=== PATIENT | male | born 1950 | race Caucasian/White ===

== ENCOUNTER 2019-01-28 09:46 | Outpatient (CLI) | payer MEDICARE ==
--- NOTE | 2019-01-28 11:14 | MRI ---
MRI Lower Ext Jt Rt WO Con History: M 23.91 internal derangement of right knee Comparison: None. Findings: Medial meniscus: Intact Lateral meniscus: Intact ACL and PCL MCL LCL are all intact. : Quadriceps tendon, patella, and patellar tendon are intact. Cartilage: Patellofemoral compartment: Multifocal high-grade cartilage fissures of the patellar apex as well as medial trochlea. Medial compartment: Intact Lateral compartment: Intact Soft tissues: No significant joint effusion. Trace popliteal bursa formation with few internal septat ions. Muscles: Normal muscle signal and bulk. Bones: No fracture malalignment or stress edema. Impression: 1.Few full-thickness cartilage fissures of the patellar apex and medial trochlea. 2. Very small popliteal cyst with internal septations. 3. Intact menisci and cruciate ligaments.
--- NOTE | 2019-01-28 11:43 | MRI ---
MRI Lower Ext Jt Lt WO Con History: M 23.92 internal derangement of left knee Comparison: None. Findings: Medial meniscus: Intact Lateral meniscus: Intact ACL, PCL, MCL and LCL are all intact with low-grade intraligamentous degeneration ACL. Simple subcortical cyst within the posterior cortex of the lateral tibia at the proximal tibiofibular joint. Extensor mechanism: Quadriceps tendon, patella, and patellar tendon are intact. Cartilage: Patellofemoral compartment: Few 50-75 % cartilage fissures and adjacent delamination of the patellar apex. High-grade chondral fissures with subcortical reactive marrow changes central trochlea. Medial compartment: Intact Lateral compartment: Intact. Posterior flexion zones are intact. Muscles: Intact. Normal muscle signal and bulk. Soft tissues: No significant popliteus bursa effusion. Normal joint fluid. Impression: 1. Multifocal full-thickness cartilage fissures and delamination with early central osteophyte format ion and articular surface remodeling of the central trochlea. 2. 50-75% thickness cartilage fissuring of the patellar apex without reactive marrow changes. 3. Intact menisci and cruciate ligaments.
== END 2019-01-28 09:47 | disposition home or self-care (01) ==
LOC: BICMRI 09:46
PROVIDERS: ATTEND Orthopaedic Surgery
DX: M23.92 Unspecified internal derangement of left knee (principal); M23.91 Unspecified internal derangement of right knee; M71.21 Synovial cyst of popliteal space [Baker], right knee

== ENCOUNTER 2022-06-25 08:05 | Outpatient (CLI) | payer MEDICARE ==
[2022-06-25] MEDS ORDERED: Iopamidol 370 76% 100 ML VIAL ONE (08:37)
== END 2022-06-25 08:06 | disposition home or self-care (01) ==
LOC: CT 08:05
PROVIDERS: ATTEND Internal Medicine Gastroenterology
DX: R10.9 Unspecified abdominal pain (principal); N20.0 Calculus of kidney; K76.89 Other specified diseases of liver
CPT/HCPCS: 74160; 82565

== ENCOUNTER 2025-04-25 12:30 | Inpatient (IN) | payer MEDICARE ==
[2025-04-25 14:42] LABS: #Basophils 0.03 10x3/uL (0.0-0.2); #Eosinophils 0.23 10x3/uL (0.0-0.7); #Monocytes 0.50 10x3/uL (0.11-0.59); #Neutrophils 2.49 10x3/uL (1.40-6.50); %Basophils 0.6 % (0.0-1.0); %Eosinophils 4.6 % (0.0-10.0); %Lymphocytes 34.1 % (21.0-51.0); %Monocytes 10.1 % (0.0-10.0); %Neutrophils 50.4 % (42.0-75.0); Hematocrit 41.8 % (42.0-52.0); Hemoglobin 14.1 g/dL (14.0-18.0); Mean Corpuscular Hemoglobin 30.8 pg (27.0-31.0); Mean Corpuscular Volume 91.3 fL (78.0-98.0); Platelet Count 156 10x3/uL (130-400); Red Blood Cell (RBC) Count 4.58 mill/uL (4.70-6.10); White Blood Cell (WBC) Count 4.95 10x3/uL (4.8-10.8)
[2025-04-25 14:57] LABS: ALT (SGPT) 18 U/L (Less than 45); AST (SGOT) 29 U/L (11-34); Albumin 4.0 g/dL (3.1-4.5); Alkaline Phosphatase 52 U/L (40-110); Anion Gap 13 mmol/L (10-20); BUN (Urea Nitrogen) 12 mg/dL (8.4-25.7); Bilirubin, Total 0.8 mg/dL (0.3-1.2); Calc. Creatinine Clearance 0 mL/min (70-130); Calcium 9.3 mg/dL (7.8-10.44); Carbon Dioxide 26 mmol/L (23-31); Chloride 106 mmol/L (98-107); Globulin 2.5 g/dL (2.4-3.5); Glucose 84 mg/dL (83-110); Potassium 4.1 mmol/L (3.5-5.1); Sodium 141 mmol/L (136-145)
[2025-04-28] MEDS ORDERED: fentaNYL PF 100 MCG/2 ML SYRINGE ONE ×2 (08:21→10:27)
[2025-04-28] MEDS ORDERED: PHENYLEPHRINE-NS 100 MCG/ML 10 ML SYRINGE ONE ×2 (08:22→11:01)
[2025-04-28] MEDS ORDERED: Rocuronium Bromide 10 MG/ML (10ML VIAL) ONE (08:23)
[2025-04-28] MEDS ORDERED: Calcium Chloride 1 GM/10 ML Abboject SYRINGE ONE (08:27)
[2025-04-28] MEDS ORDERED: CEFAZOLIN 1 GM VIAL ONE (08:27)
[2025-04-28] MEDS ORDERED: Lidocaine 2% PF 100 mg/5 ml Syringe ONE (08:27)
[2025-04-28] MEDS ORDERED: Heparin 10,000 UNITS/1 ML VIAL 30,000 UNITS in Sodium Chloride 0.9% 1,000 ML FS SCH (08:30)
[2025-04-28] MEDS ORDERED: PROPOFOL 200 MG/20 ML VIAL ONE (10:06)
[2025-04-28] MEDS ORDERED: Thrombin 5000 UNITS/5 ML VIAL ONE (10:40)
[2025-04-28] MEDS ORDERED: Heparin 5,000 UNITS/ML VIAL ONE (10:40)
[2025-04-28] MEDS ORDERED: Bisacodyl 10 MG SUPP PR PRN (12:58)
[2025-04-28] MEDS ORDERED: Ondansetron PF 4 MG/2 ML Vial IVP PRN (12:58)
[2025-04-28] MEDS ORDERED: Mag-Al 1200 mg/1200 mg/30 ML UDCUP PO PRN (12:58)
[2025-04-28] MEDS ORDERED: Nitroglycerin 50 MG/250 ML BOT 250 ML IVPB PRN (12:58)
[2025-04-28] MEDS ORDERED: hydrALAZINE 20 MG/ML VIAL SLOW IVP PRN (12:58)
[2025-04-28] MEDS ORDERED: Guaifenesin DM 100-10/5 ML UDCUP PO PRN (12:58)
[2025-04-28] MEDS ORDERED: NOREPINEPHRINE 8 MG/250 ML-D5W 250 ML IVPB PRN (12:58)
[2025-04-28 13:13] LABS: Actual Bicarbonate (HCO3a) 22.1 mEq/L (22-28); Base Excess (BEa) -3.1 mEq/L (-2.0 to +3.0); CO2 Tension 39.9 mmHg (35.0-45.0); Calcium, Ionized (arterial) 1.06 mmol/L (1.12-1.30); Hematocrit-ABG 36 % (42.0-52.0); Hemoglobin (Hb) 12.1 g/dL (14.0-18.0); O2 Tension (PaO2), arterial 139.7 mmHg (> 70.0); Potassium - ABG Lab 3.50 mmol/L (3.70-5.30); pH, Arterial 7.361 (7.35-7.45)
[2025-04-28 13:15] LABS: Puncture Site Arterial Line
[2025-04-28] MEDS ORDERED: Dextrose 50% Abboject 50 ML SYRINGE SLOW IVP PRN (13:15)
[2025-04-28] MEDS ORDERED: Glucagon 1 MG/ML KIT SC PRN (13:15)
[2025-04-28 13:20] LABS: #Basophils 0.03 10x3/uL (0.0-0.2); #Eosinophils 0.15 10x3/uL (0.0-0.7); #Monocytes 0.49 10x3/uL (0.11-0.59); #Neutrophils 5.93 10x3/uL (1.40-6.50); %Basophils 0.4 % (0.0-1.0); %Eosinophils 1.9 % (0.0-10.0); %Lymphocytes 17.7 % (21.0-51.0); %Monocytes 6.1 % (0.0-10.0); %Neutrophils 73.3 % (42.0-75.0); Hematocrit 33.5 % (42.0-52.0); Hemoglobin 11.2 g/dL (14.0-18.0); Mean Corpuscular Hemoglobin 30.5 pg (27.0-31.0); Mean Corpuscular Volume 91.3 fL (78.0-98.0); Platelet Count 120 10x3/uL (130-400); Red Blood Cell (RBC) Count 3.67 mill/uL (4.70-6.10); White Blood Cell (WBC) Count 8.08 10x3/uL (4.8-10.8)
[2025-04-28 13:37] LABS: INR-International Normal Ratio 1.3; Prothrombin Time 16.4 sec (12.0-14.7)
[2025-04-28 13:42] LABS: PTT 30.8 sec (22.9-36.1)
[2025-04-28 13:45] LABS: Burr Cells SLIGHT = 2-5 cells HPF (0-1); Platelet Adequacy Comment Platelets Decreased
[2025-04-28 13:47] LABS: Anion Gap 11 mmol/L (10-20); BUN (Urea Nitrogen) 12 mg/dL (8.4-25.7); Calc. Creatinine Clearance 79 mL/min (70-130); Calcium 7.5 mg/dL (7.8-10.44); Carbon Dioxide 21 mmol/L (23-31); Chloride 114 mmol/L (98-107); Glucose 177 mg/dL (83-110); Potassium 3.6 mmol/L (3.5-5.1); Sodium 142 mmol/L (136-145)
[2025-04-28] MEDS: Albumin 5% 12.5 GM (250 mL) BOT IVPB PRN (13:59)
[2025-04-28] MEDS: Magnesium 2 GM/50 ML(in water) 2 GM in Premix 1 BAG IVPB SCH (14:35)
[2025-04-28] MEDS: Potassium Chloride 20 MEQ (100 mL) BAG IVPB PRN (15:09)
[2025-04-28 15:21] LABS: Actual Bicarbonate (HCO3a) 17.5 mEq/L (22-28); Base Excess (BEa) -3.9 mEq/L (-2.0 to +3.0); Calcium, Ionized (arterial) 1.05 mmol/L (1.12-1.30); Hematocrit-ABG 36 % (42.0-52.0); Hemoglobin (Hb) 12.1 g/dL (14.0-18.0); O2 Tension (PaO2), arterial 123.0 mmHg (> 70.0); Potassium - ABG Lab 3.93 mmol/L (3.70-5.30); pH, Arterial 7.504 (7.35-7.45)
[2025-04-28 15:23] LABS: ALV-art Gradient 133.825 mmHg (0-20); CO2 Tension 22.7 mmHg (35.0-45.0); Puncture Site Arterial Line
[2025-04-28] MEDS: Gabapentin 100 MG CAP PO SCH (16:28)
[2025-04-28] MEDS: Acetaminophen 325 MG TAB PO PRN (16:30)
[2025-04-28] MEDS: Ketorolac Tromethamine 30 MG (1 mL) VIAL IVP SCH (18:21)
[2025-04-28 18:24] LABS: Hematocrit 33.7 % (42.0-52.0); Hemoglobin 11.3 g/dL (14.0-18.0)
[2025-04-28 18:52] LABS: Potassium 3.9 mmol/L (3.5-5.1)
[2025-04-28] MEDS: Famotidine/PF 20 mg/2ml Vial SLOW IVP SCH (19:59)
[2025-04-28] MEDS: Mupirocin 1 GM TUBE NASAL DECOLONIZATION NASAL SCH (19:59)
[2025-04-29 03:19] LABS: #Basophils Less than 0.03 10x3/uL (0.0-0.2); #Eosinophils Less than 0.03 10x3/uL (0.0-0.7); #Monocytes 0.89 10x3/uL (0.11-0.59); #Neutrophils 5.32 10x3/uL (1.40-6.50); %Basophils 0.3 % (0.0-1.0); %Eosinophils 0.0 % (0.0-10.0); %Lymphocytes 7.2 % (21.0-51.0); %Monocytes 13.1 % (0.0-10.0); %Neutrophils 78.7 % (42.0-75.0); Hematocrit 31.6 % (42.0-52.0); Hemoglobin 10.3 g/dL (14.0-18.0); Mean Corpuscular Hemoglobin 30.2 pg (27.0-31.0); Mean Corpuscular Volume 92.7 fL (78.0-98.0); Platelet Count 130 10x3/uL (130-400); Red Blood Cell (RBC) Count 3.41 mill/uL (4.70-6.10); White Blood Cell (WBC) Count 6.77 10x3/uL (4.8-10.8)
[2025-04-29 03:35] LABS: Anion Gap 11 mmol/L (10-20); BUN (Urea Nitrogen) 15 mg/dL (8.4-25.7); Calc. Creatinine Clearance 67 mL/min (70-130); Calcium 7.7 mg/dL (7.8-10.44); Carbon Dioxide 21 mmol/L (23-31); Chloride 112 mmol/L (98-107); Glucose 100 mg/dL (83-110); Magnesium 2.4 mg/dL (1.6-2.6); Potassium 4.3 mmol/L (3.5-5.1); Sodium 140 mmol/L (136-145)
[2025-04-29] MEDS: Albumin 5% 12.5 GM (250 mL) BOT IVPB PRN (06:12)
[2025-04-29] MEDS: Norepinephrine 8 MG/0.9% NS 250 ML IVPB PRN (06:37)
[2025-04-29] MEDS: Hetastarch 6% 500 ML 500 ML IVPB SCH (07:24)
[2025-04-29] MEDS: Hetastarch 6% 500 ML 500 ML ONE (07:31)
[2025-04-29] MEDS: Enoxaparin 30 MG (0.3 mL) SYRINGE SC SCH (08:38)
[2025-04-29] MEDS: Oxybutynin 5 MG TAB PO SCH (08:39)
[2025-04-29] MEDS: Aspirin 325 MG TAB PO SCH (08:40)
[2025-04-29] MEDS: CO Q-10 CAPSULE 100 MG PO SCH (08:40)
[2025-04-29] MEDS: Magnesium 2 GM/50 ML(in water) 2 GM in Premix 1 BAG IVPB SCH (08:42)
[2025-04-29] MEDS: Pantoprazole 40 MG DR.TAB PO SCH (09:42)
[2025-04-29] MEDS: Calcium Chloride 1 GM/10 ML Abboject SYRINGE IVP SCH (09:42)
[2025-04-29 18:44] VITALS: BMI 22.3
[2025-04-29] MEDS ORDERED: Nitroglycerin 0.4 MG TAB (25 Tab Bottle) SL PRN (20:31)
[2025-04-29] MEDS ORDERED: diphenhydrAMINE 25 MG CAP PO PRN (20:31)
[2025-04-29] MEDS ORDERED: Milk Of Magnesia 30 ML UDCUP PO PRN (20:31)
[2025-04-29] MEDS ORDERED: Artificial Tear Ophth Sol 15 ML BOT EA EYE PRN (20:31)
[2025-04-29] MEDS ORDERED: Mineral Oil ENEMA PR PRN (20:31)
[2025-04-29] MEDS: Albumin 5% 25 GM (500 mL) BOT IVPB SCH (22:37)
[2025-05-01] MEDS: Ketorolac Tromethamine 30 MG (1 mL) VIAL IVP SCH (06:33)
[2025-05-01] MEDS: Furosemide 20 MG TAB PO SCH (11:35)
[2025-05-02] MEDS: Furosemide 20 MG TAB PO SCH (09:01)
[2025-05-02 10:50] VITALS: BP 103/60; TEMP 97.9
== END 2025-05-02 11:00 | disposition home or self-care (01) | DRG 236 ==
LOC: SURG A 04-28 08:08 → CCU 04-28 12:15 → PCU 04-29 19:57
PROVIDERS: ADMIT Thoracic Surgery (Cardiothoracic Vascular Surgery); ATTEND Thoracic Surgery (Cardiothoracic Vascular Surgery)
PROC: 021009W Bypass Coronary Artery, One Artery from Aorta with Autologous Venous Tissue, Open Approach (ICD-10-PCS; principal; 2025-04-28)
PROC: 02100Z9 Bypass Coronary Artery, One Artery from Left Internal Mammary, Open Approach (ICD-10-PCS; 2025-04-28)
PROC: 06BQ4ZZ Excision of Left Saphenous Vein, Percutaneous Endoscopic Approach (ICD-10-PCS; 2025-04-28)
PROC: 02L70CK Occlusion of Left Atrial Appendage with Extraluminal Device, Open Approach (ICD-10-PCS; 2025-04-28)
PROC: 5A1221Z Performance of Cardiac Output, Continuous (ICD-10-PCS; 2025-04-28)
PROC: 3E080GC Introduction of Other Therapeutic Substance into Heart, Open Approach (ICD-10-PCS; 2025-04-28)
DX: I25.10 Atherosclerotic heart disease of native coronary artery without angina pectoris (principal)
CPT/HCPCS: 36415; 36416; 36430; 71045; 80048; 80053; 82805; 83735; 84100; 85025; 85610; 85730; 86850; 86900; 86901; 93005; 93010; 93798; 94002; 97139; A4311; A4648; C1751; C1889; J0169; J0665; J0690; J1100; J1308; J1642; J1644; J1650; J1815; J1885; J2003; J2250; J2272; J2440; J2704; J2720; J3010; J3373; J3475; J3480; J7030; P9045; S0017

== ENCOUNTER 2025-04-25 12:35 | Outpatient (CLI) | payer MEDICARE | END 2025-04-25 12:36 | disposition home or self-care (01) | LOC: LABBT 12:35 | PROVIDERS: ATTEND Thoracic Surgery (Cardiothoracic Vascular Surgery) | DX: Z01.818 Encounter for other preprocedural examination (principal); I25.10 Atherosclerotic heart disease of native coronary artery without angina pectoris | CPT/HCPCS: 71046; 80053; 85025; 86850; 86900; 86901; 93005; 93010 ==

== ENCOUNTER 2025-05-03 12:21 | Emergency (ER) | payer MEDICARE ==
[2025-05-03 13:29] LABS: #Basophils 0.03 10x3/uL (0.0-0.2); #Eosinophils 0.14 10x3/uL (0.0-0.7); #Monocytes 0.62 10x3/uL (0.11-0.59); #Neutrophils 4.70 10x3/uL (1.40-6.50); %Basophils 0.5 % (0.0-1.0); %Eosinophils 2.3 % (0.0-10.0); %Lymphocytes 9.8 % (21.0-51.0); %Monocytes 10.1 % (0.0-10.0); %Neutrophils 77.0 % (42.0-75.0); Hematocrit 27.6 % (42.0-52.0); Hemoglobin 9.5 g/dL (14.0-18.0); Mean Corpuscular Hemoglobin 30.6 pg (27.0-31.0); Mean Corpuscular Volume 89.0 fL (78.0-98.0); Platelet Count 174 10x3/uL (130-400); Red Blood Cell (RBC) Count 3.10 mill/uL (4.70-6.10); White Blood Cell (WBC) Count 6.11 10x3/uL (4.8-10.8)
[2025-05-03 13:47] LABS: ALT (SGPT) 27 U/L (Less than 45); AST (SGOT) 26 U/L (11-34); Albumin 3.0 g/dL (3.1-4.5); Alkaline Phosphatase 70 U/L (40-110); Anion Gap 11 mmol/L (10-20); BUN (Urea Nitrogen) 16 mg/dL (8.4-25.7); Bilirubin, Total 0.7 mg/dL (0.3-1.2); Calc. Creatinine Clearance 0 mL/min (70-130); Calcium 8.6 mg/dL (7.8-10.44); Carbon Dioxide 25 mmol/L (23-31); Chloride 107 mmol/L (98-107); Globulin 2.4 g/dL (2.4-3.5); Glucose 147 mg/dL (83-110); Potassium 3.9 mmol/L (3.5-5.1); Sodium 139 mmol/L (136-145)
[2025-05-03] MEDS ORDERED: Ondansetron PF 4 MG/2 ML Vial ONE (14:01)
== END 2025-05-03 17:50 | disposition home or self-care (01) ==
LOC: ERS 12:21
DX: R19.7 Diarrhea, unspecified (principal); R79.89 Other specified abnormal findings of blood chemistry; I25.10 Atherosclerotic heart disease of native coronary artery without angina pectoris; Z95.1 Presence of aortocoronary bypass graft
CPT/HCPCS: 83605; 83690; 84484 ×2; 93005; J2405; 36415; 80053; 84443; 85025; 96361; 96374